=== PATIENT | female | born 1990 | race Hispanic/Latino ===

== ENCOUNTER 2018-09-20 23:12 | Emergency (ER) | payer OTHER, SELFPAY ==
--- OUTSIDE RECORDS SUMMARY | 2018-09-20 23:13 | XMS REPORT ---
:1990 [facility] Address [address] [place] [address] Care Team Providers Name Role Phone UNKNOWN, REFFERING Primary Care Provider Unavailable BRITANY WEBER Unavailable Unavailable Problems This patient has no known problems. Allergies, Adverse Reactions, Alerts This patient has no known allergies or adverse reactions. Medications This patient has no known medications. Encounters Start End Encounter Admission Attending Care Care Encounter Date/Time Date/Time Type Type Clinicians Facility Department ID 2018-06-11 2018-06-11 Outpatient [facility] [id number] 00:00:00 00:00:00 2018-04-28 2018-04-28 Outpatient [facility] [id number] 00:00:00 00:00:00 2018-04-24 2018-04-24 [facility] [id number] 16:46:38 16:46:38 2018-04-24 2018-04-24 Outpatient [facility] [id number] 15:51:48 15:51:48 2018-04-11 2018-04-11 [facility] [id number] 13:55:38 13:55:38 2018-04-11 2018-04-11 [facility] [id number] 00:00:00 00:00:00 2017-06-10 2017-06-10 Outpatient [facility] [id number] 08:49:20 08:49:20 2017-04-11 2017-04-11 [facility] [id number] 00:00:00 00:00:00 Results Test Description Test Time Test Comments Text Results Atomic Results Result Comments Basic Metabolic Panel 2017-02-11 13:11:00 Test Item Value Reference Range Comments Sodium (test code=NA) 139 mmol/L 135-145 Potassium (test code=K) 3.7 mmol/L 3.5-5.1 Chloride (test code=CL) 104 mmol/L 98-105 Carbon Dioxide (test 26 mmol/L 22-29 code=CO2) Glucose (test code=GLU) 78 mg/dL 70-115 Blood Urea Nitrogen (test 7 mg/dL 6-20 code=BUN) Creatinine (test code=CREAT) 0.4 mg/dL 0.5-0.9 Calcium (test code=CA) 8.8 mg/dL 8.3-10.5 BUN/Creatinine Ratio (test 17.5 code=BCRATIO) Anion Gap (test code=AGAP) 9 mmol/L 7-16 Estimated GFR (test >60 mL/min/1.73m2 eGFR (estimated Glomerular code=GFR) Filtration Rate) is an estimated value,calculated from the patient's serum creatinine using the MDRD equation.It is NOT the patient's actual GFR. The eGFR provides a more clinicallyuseful measure of kidney disease than serum creatinine alone.This calculation takes sex and race into account, if the informationis provided. If the race is not provided, and the patient isAfrican-Colombian, multiply by 1.212. If sex is not provided, and thepatient is female, multiply by 0.742. Results for patients <18 years ofage have not been validated by the MDRD study and should be interpretedwith caution.eGFR Result Interpretation:eGFR > or=60 is in the Normal RangeeGFR < 60 may mean kidney diseaseeGFR < 15 may mean kidney failureRanges recommended by the National Kidney Foundation,http://nkdep.nih.go v [facility], Serum, [id number] 13:00:00 Test Item Value Reference Range Comments Preg Qual [Se] (test code=BSHCG) Negative Negative CBC with [id number] 12:52:00 Test Item Value Reference Range Comments WBC (test code=WBC) 6.8 K/cumm 4.4-10.5 RBC (test code=RBC) 4.82 M/cumm 3.75-5.20 Hemoglobin (test code=HGB) 13.8 gm/dL 12.2-14.8 Hematocrit (test code=HCT) 42.8 % 36.5-44.4 MCV (test code=MCV) 88.9 fL 80-100 MCH (test code=MCH) 28.6 pg 27.0-32.5 MCHC (test code=MCHC) 32.2 g/dL 32.0-37.5 RDW (test code=RDW) 13.3 % 11.5-14.5 Platelet Count (test code=PLTCT) 246 K/cumm 140-440 MPV (test code=MPV) 7.9 fL Diff Method (test code=DIFFM) Auto Neutrophil (test code=NEUT) 66.2 % 36-70 Lymphocyte (test code=LYMPH) 23.9 % 12-44 Monocyte (test code=MONO) 6.3 % 0-11 Eosinophil (test code=EOS) 3.4 % 0-7 Basophil (test code=BASO) 0.1 % 0-2 Neutro Abs (test code=ANEUT) 4.5 K/cumm 1.6-7.4 Lymph Abs (test code=ALYMPH) 1.6 K/cumm 0.5-4.6 Benzie Abs (test code=AMONO) 0.4 K/cumm 0.0-1.2 Eos Abs (test code=AEOS) 0.23 K/cumm 0.00-0.74 Baso Abs (test code=ABASO) 0.0 K/cumm 0.00-0.21
[2018-09-20] MEDS ORDERED: IPRATROPIUM BROM 0.5MG/2.5ML ONE (23:53)
[2018-09-20] MEDS ORDERED: ALBUTEROL 2.5 MG/3 ML NEB SOL ONE (23:53)
--- NOTE | 2018-09-21 01:03 | ER ---
Nurse's Notes [facility] Name: Carolina Goldberg Age: 28 yrs Sex: Female : 1990 Arrival Date: 09/20/2018 Time: 23:14 Bed 28 Private MD: Diagnosis: Unspecified asthma with (acute) exacerbation;Acute upper respiratory infection, unspecified Presentation: 09/20 23:24 Presenting complaint: Patient states: i have been coughing , short of breath and have mg2 chills x 3 days. i used my breathing treatment but to no avail. Transition of care: patient was not received from another setting of care. Onset of symptoms was September 18, 2018. Risk Assessment: Do you want to hurt yourself or someone else? Patient reports no desire to harm self or others. Initial Sepsis Screen: Does the patient meet any 2 criteria? No. Patient's initial sepsis screen is negative. Does the patient have a suspected source of infection? No. Patient's initial sepsis screen is negative. Care prior to arrival: None. 23:24 Method Of Arrival: Ambulatory mg2 23:24 Acuity: EWELINA 4 mg2 Triage Assessment: 23:30 General: Appears in no apparent distress. comfortable, Behavior is calm, cooperative. mg2 Pain: Complains of pain in chest Pain does not radiate. Pain currently is 2 out of 10 on a pain scale. Quality of pain is described as aching, Pain began today Is intermittent, Aggravated by coughing. EENT: No signs and/or symptoms were reported regarding the EENT system. Neuro: Level of Consciousness is awake, alert, obeys commands, Oriented to person, place, time, situation. Cardiovascular: Capillary refill < 3 seconds Patient's skin is warm and dry. Respiratory: Breath sounds with wheezes in right posterior middle lobe and right posterior lower lobe. Respiratory: Reports shortness of breath at rest since 3 days ago cough that is productive. GI: No signs and/or symptoms were reported involving the gastrointestinal system. : No signs and/or symptoms were reported regarding the genitourinary system. Derm: Skin is intact, is healthy with good turgor, Skin is pink, warm \T\ dry. normal. Musculoskeletal: Circulation, motion, and sensation intact. Capillary refill < 3 seconds. 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 - Social history:: Smoking status: Patient/guardian denies using tobacco, Patient/guardian denies using alcohol, street drugs, IV drugs. - Ebola Screening: : No symptoms or risks identified at this time. Screenin:29 Abuse screen: Denies threats or abuse. Denies injuries from another. Nutritional mg2 screening: No deficits noted. Tuberculosis screening: No symptoms or risk factors identified. Fall Risk None identified. Assessment: 23:33 Reassessment: see triage assessment. mg2 09/21 01:16 Reassessment: Patient states feeling better. mg2 Vital Signs: 09/20 23:27 BP 132 / 88; Pulse 115; Resp 18; Temp 98(O); Pulse Ox 94% on R/A; Weight 104.33 kg; mg2 Height 5 ft. 4 in. (162.56 cm); Pain 2/10; 09/21 01:15 BP 128 / 85; Pulse 113; Resp 18; Pulse Ox 98% on R/A; Pain 0/10; mg2 09/20 23:27 Body Mass Index 39.48 (104.33 kg, 162.56 cm) mg2 ED Course: 09/20 23:14 Patient arrived in ED. ag3 23:17 Salomon Haley, NANDO is Primary Nurse. mg2 23:18 Jonn Alejandro PA is PHCP. cp 23:18 Jonn Rose MD is Attending Physician. cp 23:26 Triage completed. mg2 23:29 Arm band placed on. mg2 23:30 No provider procedures requiring assistance completed. Patient did not have IV access mg2 during this emergency room visit. 23:34 Patient has correct armband on for positive identification. mg2 23:58 Patient moved to radiology via wheelchair. sg4 23:58 X-ray completed. Patient tolerated procedure well. sg4 23:59 XRAY Chest Pa And Lat (2 Views) In Process Unspecified. EDMS 09/21 00:05 Patient moved back from radiology. sg4 Administered Medications: 09/20 23:45 Drug: Albuterol - atroVENT (3:1) (2.5 mg - 0.5 mg) 3 ml Route: Nebulizer; mg2 09/21 00:46 Follow up: Response: No adverse reaction; Marked relief of symptoms mg2 01:01 Drug: predniSONE 40 mg Route: PO; mg2 01:01 Follow up: Response: No adverse reaction; Medication administered at discharge. mg2 Outcome: 01:02 Discharge ordered by . jg 01:16 Discharged to home ambulatory. mg2 01:16 Condition: stable 01:16 Discharge instructions given to patient, Instructed on discharge instructions, follow up and referral plans. medication usage, Demonstrated understanding of instructions, follow-up care, medications, Prescriptions given X 4. 01:16 Patient left the ED. mg2 Signatures: Dispatcher [employer] EDMS Jonn Alejandro PA PA cp Gardose, Michele, RN RN mg2 Tara Chowdary3 Sugey Barba4
--- NOTE | 2018-09-21 01:03 | EDPHYS ---
Physician Documentation [facility] Name: Carolina Goldberg Age: 28 yrs Sex: Female : 1990 Arrival Date: 09/20/2018 Time: 23:14 Bed 28 Private MD: ED Physician Jonn Rose HPI: 09/20 23:35 This 28 yrs old Female presents to ER via Ambulatory with complaints of Cough. cp 23:35 The patient or guardian reports cough, that is intermittent, with no sputum. cp 23:35 Onset: The symptoms/episode began/occurred 3 day(s) ago. Severity of symptoms: in the emergency department the symptoms are unchanged, despite home interventions. Associated signs and symptoms: Pertinent positives: chest pain, with cough, fever, sore throat, Pertinent negatives: diarrhea, vomiting. 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 - Social history:: Smoking status: Patient/guardian denies using tobacco, Patient/guardian denies using alcohol, street drugs, IV drugs. - Ebola Screening: : No symptoms or risks identified at this time. ROS: 23:45 Constitutional: Positive for chills, poor PO intake, Negative for body aches. cp 23:45 Eyes: Negative for injury, pain, redness, and discharge. cp 23:45 ENT: Positive for sore throat, Negative for drainage from ear(s), ear pain, difficulty swallowing, difficulty handling secretions. 23:45 Cardiovascular: Positive for chest pain, with cough, Negative for edema, palpitations. 23:45 Respiratory: Positive for cough, with no reported sputum. 23:45 Abdomen/GI: Negative for abdominal pain, vomiting, diarrhea, constipation. 23:45 Skin: Negative for cellulitis, rash. 23:45 Neuro: Negative for altered mental status, headache, weakness. 23:45 All other systems are negative. Exam: 23:50 Constitutional: The patient appears in no acute distress, alert, awake, cp non-diaphoretic, non-toxic, well developed, well nourished, obese. 23:50 Head/Face: Normocephalic, atraumatic. Eyes: Pupils equal round and reactive to light, cp extra-ocular motions intact. Lids and lashes normal. Conjunctiva and sclera are non-icteric and not injected. Cornea within normal limits. Periorbital areas with no swelling, redness, or edema. ENT: Nares patent. No nasal discharge, no septal abnormalities noted. Tympanic membranes are normal and external auditory canals are clear. Oropharynx with no redness, swelling, or masses, exudates, or evidence of obstruction, uvula midline. Mucous membranes moist. Chest/axilla: Normal chest wall appearance and motion. Nontender with no deformity. No lesions are appreciated. 23:50 Cardiovascular: Rate: tachycardic, Rhythm: regular, Edema: is not appreciated, JVD: is not appreciated. 23:50 Respiratory: the patient does not display signs of respiratory distress, Respirations: labored breathing, is not present, intercostal retractions, are absent, tachypnea, is not appreciated, Breath sounds: decreased breath sounds, that are mild, are located in both bases, stridor, is not appreciated, wheezing: that is mild, is heard in the left posterior lower lobe. 23:50 Abdomen/GI: Exam negative for discomfort, distension, guarding, Inspection: abdomen appears normal. 23:50 Back: pain, is absent, ROM is normal. 23:50 Skin: cellulitis, is not appreciated, no rash present. 23:50 Neuro: Orientation: to person, place \T\ time. Mentation: is normal, Cerebellar function: is grossly normal, Motor: moves all fours, strength is normal, Sensation: is normal. Vital Signs: 23:27 BP 132 / 88; Pulse 115; Resp 18; Temp 98(O); Pulse Ox 94% on R/A; Weight 104.33 kg; mg2 Height 5 ft. 4 in. (162.56 cm); Pain 2/10; 09/21 01:15 BP 128 / 85; Pulse 113; Resp 18; Pulse Ox 98% on R/A; Pain 0/10; mg2 09/20 23:27 Body Mass Index 39.48 (104.33 kg, 162.56 cm) mg2 MDM: 09/20 23:18 Patient medically screened. cp 09/21 00:00 Differential Diagnosis: Bronchitis Influenza Upper Respiratory Infection Asthma cp Exacerbation Viral Syndrome Pneumonia. 01:01 Data reviewed: vital signs, nurses notes, lab test result(s), radiologic studies, plain cp films. 01:01 Test interpretation: by ED physician or midlevel provider: plain radiologic studies. cp Counseling: I had a detailed discussion with the patient and/or guardian regarding: the historical points, exam findings, and any diagnostic results supporting the discharge/admit diagnosis, lab results, radiology results, the need for outpatient follow up, a family practitioner, to return to the emergency department if symptoms worsen or persist or if there are any questions or concerns that arise at home. Response to treatment: the patient's symptoms have mildly improved after treatment, and as a result, I will discharge patient. 09/20 23:32 Order name: Influenza Screen (a \T\ B); Complete Time: 00:32 cp 09/21 00:32 Interpretation: Reviewed. 09/20 23:32 Order name: Strep; Complete Time: 00:32 cp 09/21 00:32 Interpretation: Reviewed. 09/20 23:46 Order name: XRAY Chest Pa And Lat (2 Views) 09/21 00:32 Order name: Throat Culture [facility] 09/21 01:05 Order name: Urine Dipstick--Ancillary (enter results) [facility] 09/21 01:05 Order name: Urine --Ancillary (enter results) [facility] 09/20 23:32 Order name: Urine Dipstick-Ancillary (obtain specimen); Complete Time: 01:01 cp 09/20 23:32 Order name: Urine Test (obtain specimen); Complete Time: 01:01 cp Administered Medications: 09/20 23:45 Drug: Albuterol - atroVENT (3:1) (2.5 mg - 0.5 mg) 3 ml Route: Nebulizer; mg2 09/21 00:46 Follow up: Response: No adverse reaction; Marked relief of symptoms mg2 01:01 Drug: predniSONE 40 mg Route: PO; mg2 01:01 Follow up: Response: No adverse reaction; Medication administered at discharge. mg2 Disposition: 09/21/18 01:02 Discharged to Home. Impression: Unspecified asthma with (acute) exacerbation, Acute upper respiratory infection, unspecified. - Condition is Stable. - Discharge Instructions: Asthma, Adult, Upper Respiratory Infection, Adult, Cool Mist Vaporizer. - Prescriptions for Tessalon Perles 100 mg Oral Capsule - take 2 capsule by ORAL route every 8 hours As needed; 30 capsule. Albuterol Sulfate 2.5 mg /3 mL (0.083 %) Inhalation Solution for Nebulization - inhale 1 unit by NEBULIZATION route every 8 hours As needed; 1 box. Prednisone 20 mg Oral Tablet - take 2 tablet by ORAL route once daily for 5 days; 10 tablet. Albuterol Sulfate 90 mcg/actuation - inhale 1-2 puff by INHALATION route every 4-6 hours; 1 Inhaler. - Medication Reconciliation Form, Thank You Letter, Antibiotic Education, Prescription Opioid Use form. - Follow up: Private Physician; When: 2 - 3 days; Reason: Recheck today's complaints. - Problem is new. - Symptoms have improved. Addendum: 09/24/2018 11:21 Co-signature as Attending Physician, Jonn Rose MD I agree with the assessment and c guerin plan of care. Signatures: Dispatcher [employer] EDAK Jonn Rose MD MD cha Page, Corey PA PA cp Salomon Haley, RN RN mg2 Corrections: (The following items were deleted from the chart) 09/21 01:16 01:02 09/21/2018 01:02 Discharged to Home. Impression: Unspecified asthma with (acute) mg2 exacerbation; Acute upper respiratory infection, unspecified. Condition is Stable. Forms are Medication Reconciliation Form, Thank You Letter, Antibiotic Education, Prescription Opioid Use. Follow up: Private Physician; When: 2 - 3 days; Reason: Recheck today's complaints. Problem is new. Symptoms have improved. cp
[2018-09-21] MEDS ORDERED: predniSONE 20 MG TAB ONE (01:10)
[2018-09-21 06:04] LABS: Urine Blood 1+ (NEG); Urine Glucose NEGATIVE (NEG); Urine Protein 1+ (NEG); Urine Specific Gravity 1.025 (1.005-1.030)
--- NOTE | 2018-09-21 09:00 | RAD REPORT ---
EXAM DESCRIPTION: RAD - Chest Pa And Lat (2 Views) - 09/21/2018 12:01 am CLINICAL HISTORY: Cough, shortness of breath COMPARISON: None. TECHNIQUE: PA and lateral views of the chest were obtained. FINDINGS: The lungs are clear of mass or consolidation. No failure or volume overload. Minimal promi nence of the medial left base lung markings. Heart size is normal and central vasculature is within normal limits. No pleural effusion or pneumothorax seen. No acute bony finding noted. No aortic a bnormality. IMPRESSION: Minimal prominence medial left lung base markings. No prior imaging. Minimal left base infiltrate is possible.
== END 2018-09-21 01:16 | disposition home or self-care (01) ==
LOC: ER 23:12
DX: J45.901 Unspecified asthma with (acute) exacerbation (principal); J06.9 Acute upper respiratory infection, unspecified; E03.9 Hypothyroidism, unspecified
CPT/HCPCS: 71046; 81003; 81025; 87070; 87081; 87804; 94640; 99284; J7512

== ENCOUNTER 2021-06-05 09:24 | Emergency (ER) | payer SELFPAY ==
--- OUTSIDE RECORDS SUMMARY | 2021-06-05 09:27 | XMS REPORT | Continuity of Care Document ---
:1990 Author Organization [facility] t Address [address] [place] [address] Care Team Providers Name Role Phone UNKNOWN, REFFERING Primary Care Physician Unavailable BRITANY WEBER Attending Clinician Unavailable Eleni WEBER Admitting Clinician Unavailable Problems This patient has no known problems. Allergies, Adverse Reactions, Alerts This patient has no known allergies or adverse reactions. Medications This patient has no known medications. Procedures This patient has no known procedures. Encounters Start End Encounter Admission Attending Care Care Encounter Source Date/Time Date/Time Type Type Clinicians Facility Department ID 2018-06-11 2018-06-11 Outpatient [facility] [id number] 00:00:00 00:00:00 2018-04-28 2018-04-28 Outpatient [facility] [id number] 00:00:00 00:00:00 2018-04-24 2018-04-24 Outpatient [facility] [id number] 16:46:38 16:46:38 2018-04-24 2018-04-24 Outpatient [facility] [id number] [facility] 15:51:48 15:51:48 2018-04-11 2018-04-11 Outpatient [facility] [id number] 13:55:38 13:55:38 2018-04-11 2018-04-11 Outpatient [facility] [id number] 00:00:00 00:00:00 2017-06-10 2017-06-10 Outpatient [facility] [id number] [facility] 08:49:20 08:49:20 2017-04-11 2017-04-11 Outpatient [facility] [id number] [facility] 00:00:00 00:00:00 Results Test Description Test Time Test Comments Results Result [facility] e Comments BREAST ULTRASOUND 2018-10-29 - BREAST ULTRASOUND LEFT 11:22:04 LEFTULTRASOUND OF LEFT BREAST AND LEFT AXILLA: 10/29/2018CLINICAL: Pain left breast. No prior exams were available for comparison. Real-time ultrasound of the left breast and axilla was performed. No abnormalities were seen sonographically in the left breast or the left axilla. IMPRESSION: BENIGN There is no sonographic evidence of malignancy. Follow-up with ACR guidelines. Axel Marrero M.D. rb/:10/29/2018 11:22:04 Apartment Maintenance Worker: Radha CASTRO, [facility]-FWletter sent: BIRADS 1-2 Combo FU Letter Ultrasound BI-RADS: 2 Benign DIAG MAMM 2018-10-29 - DIAG MAMM BILATERAL BILATERAL MALVIN CAD 11:20:19 MALVIN CAD DIGITAL DIGITALBILATERAL FIRST EVER DIGITAL DIAGNOSTIC MAMMOGRAM 3D/2D WITH CAD: 10/29/2018CLINICAL: Focal pain, left breast. Digital breast tomosynthesis was performed in addition to routine CC and MLO views. Current mammographic images were evaluated by either a [employer] M-Vu or a [employer] ImageChecker CAD (computer aided detection system). No prior exams were available for comparison. This is a baseline exam. There are scattered fibroglandular tissues in both breasts. There is a benign calcification in the right breast. There also are benign intramammary nodes in the right breast. Additionally, there are benign calcifications and an intramammary node in the left breast. No suspicious mass, architectural distortion, malignant type calcification, or lymph node abnormality detected. IMPRESSION: INCOMPLETE ASSESSMENT: ADDITIONAL IMAGING EVALUATION RECOMMENDEDThere is no mammographic evidence of malignancy. Left breast ultrasound to follow, reported separately.Axel Marrero M.D. rb/:10/29/2018 11:20:19 Entry: - 10/31/2018 11:16:40Imaging Technologist: Arabella CASTRO, [facility]-FWMammogram BI-RADS: 0 Indeterminate Basic Metabolic Panel 2017-02-11 13:11:00 Test Item Value Reference Range Interpretation Comme nts Sodium (test code = NA) 139 mmol/L 135-145 N Potassium (test code = K) 3.7 mmol/L 3.5-5.1 N Chloride (test code = CL) 104 mmol/L 98-105 N Carbon Dioxide (test code = 26 mmol/L 22-29 N CO2) Glucose (test code = GLU) 78 mg/dL 70-115 N Blood Urea Nitrogen (test 7 mg/dL 6-20 N code = BUN) Creatinine (test code = 0.4 mg/dL 0.5-0.9 L CREAT) Calcium (test code = CA) 8.8 mg/dL 8.3-10.5 N BUN/Creatinine Ratio (test 17.5 code = BCRATIO) Anion Gap (test code = 9 mmol/L 7-16 N AGAP) Estimated GFR (test code = >60 mL/min/1.73m2 eGFR (estimated Glomerular GFR) Filtration Rate ) is an estimated value ,calculated from the patien t's serum creatinine usin g the MDRD equation.It is NOT the patient's actua l GFR. The eGFR provides a more clinicallyusefu l measure of kidney disease than serum creatinine jagjit e.This calculation janay es sex and race into accou nt, if the informationis p rovided. If the race is not provided, and the patient isAfrican-Ameri can, multiply by 1.212. If se x is not provided, and t hepatient is female, multipl y by 0.742. Results for pat ients <18 years ofage hav e not been validated by e MDRD study and should be i nterpretedwith caution.eGFR Re sult Interpretation: eGFR > or = 60 is in the Nancy l RangeeGFR < 60 may mean kid willow diseaseeGFR < 1 5 may mean kidney failure* Ranges recommended by the National Kidney Foundation,http ://nkdep.nih.g ov BHCG, Serum, [id number] 13:00:00 Test Item Value Reference Range Interpretation Comments Preg Qual [Se] (test code = BSHCG) Negative Negative N CBC with [id number] 12:52:00 Test Item Value Reference Range Interpretation Comments WBC (test code = WBC) 6.8 K/cumm 4.4-10.5 N RBC (test code = RBC) 4.82 M/cumm 3.75-5.20 N Hemoglobin (test code = HGB) 13.8 gm/dL 12.2-14.8 N Hematocrit (test code = HCT) 42.8 % 36.5-44.4 N MCV (test code = MCV) 88.9 fL 80-100 N MCH (test code = MCH) 28.6 pg 27.0-32.5 N MCHC (test code = MCHC) 32.2 g/dL 32.0-37.5 N RDW (test code = RDW) 13.3 % 11.5-14.5 N Platelet Count (test code = 246 K/cumm 140-440 N PLTCT) MPV (test code = MPV) 7.9 fL Diff Method (test code = DIFFM) Auto Neutrophil (test code = NEUT) 66.2 % 36-70 N Lymphocyte (test code = LYMPH) 23.9 % 12-44 N Monocyte (test code = MONO) 6.3 % 0-11 N Eosinophil (test code = EOS) 3.4 % 0-7 N Basophil (test code = BASO) 0.1 % 0-2 N Neutro Abs (test code = ANEUT) 4.5 K/cumm 1.6-7.4 N Lymph Abs (test code = ALYMPH) 1.6 K/cumm 0.5-4.6 N [place] Abs (test code = AMONO) 0.4 K/cumm 0.0-1.2 N Eos Abs (test code = AEOS) 0.23 K/cumm 0.00-0.74 N Baso Abs (test code = ABASO) 0.0 K/cumm 0.00-0.21 N
[2021-06-05 10:59] LABS: SARS-COV-2 RT PCR NEGATIVE (NEGATIVE)
--- NOTE | 2021-06-05 11:49 | EDPHYS ---
Physician Documentation [facility] Name: Carolina Goldberg Age: 30 yrs Sex: Female : 1990 Arrival Date: 06/05/2021 Time: 09:28 Bed 17 Private MD: ED Physician Ho Morris HPI: 06/05 09:59 This 30 yrs old Female presents to ER via Ambulatory with complaints of rn Diarrhea. 09:59 The patient presents to the emergency department with diarrhea, that is intermittent. rn Onset: The symptoms/episode began/occurred 5 day(s) ago. Possible causes: unknown. The symptoms are aggravated by nothing. The symptoms are alleviated by nothing. Associated signs and symptoms: Pertinent positives: abdominal pain, Pertinent negatives: anorexia, dysuria, fever, GI bleeding, hematuria, vomiting. Severity of symptoms: At their worst the symptoms were mild in the emergency department the symptoms have improved. The patient has experienced similar episodes in the past. The patient has not recently seen a physician. 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 - Social history:: Smoking status: Patient denies any tobacco usage or history of. - Family history:: not pertinent. - Hospitalizations: : No recent hospitalization is reported. ROS: 09:59 Constitutional: Negative for fever, chills, and weight loss, Eyes: Negative for injury, rn pain, redness, and discharge, Neck: Negative for injury, pain, and swelling, Cardiovascular: Negative for chest pain, palpitations, and edema, Respiratory: Negative for shortness of breath, cough, wheezing, and pleuritic chest pain, Abdomen/GI: + abd cramping and diarrhea Back: Negative for injury and pain, : Negative for injury, bleeding, discharge, and swelling, MS/Extremity: Negative for injury and deformity, Skin: Negative for injury, rash, and discoloration, Neuro: Negative for headache, weakness, numbness, tingling, and seizure. 09:59 All other systems are negative. Exam: 09:59 Constitutional: This is a well developed, well nourished patient who is awake, alert, rn and in no acute distress. Head/Face: Normocephalic, atraumatic. Eyes: Periorbital areas with no swelling, redness, or edema. Cardiovascular: Regular rate and rhythm. No pulse deficits. Respiratory: No increased work of breathing, no retractions or nasal flaring. Abdomen/GI: soft, non-tender, no guarding Skin: Warm, dry MS/ Extremity: Pulses equal, no cyanosis. Neuro: Awake and alert, GCS 15 Vital Signs: 09:36 BP 108 / 68; Pulse 79; Resp 17; Temp 97.7(TE); Pulse Ox 98% on R/A; Weight 92.99 kg tw2 (R); Height 5 ft. 3 in. (160.02 cm); 09:42 BP 106 / 70; Pulse 75; Resp 18; Temp 97.9(O); Pulse Ox 98% ; sl2 11:18 BP 111 / 70; Pulse 67; Resp 16; Temp 98.5; Pulse Ox 99% ; sl2 09:36 Body Mass Index 36.31 (92.99 kg, 160.02 cm) tw2 MDM: 09:40 Patient medically screened. rn 11:47 Differential diagnosis: viral gastroenteritis, gastroenteritis. Data reviewed: vital rn signs, nurses notes, lab test result(s), and as a result, I will discharge patient. Counseling: I had a detailed discussion with the patient and/or guardian regarding: the historical points, exam findings, and any diagnostic results supporting the discharge/admit diagnosis, lab results, the need for outpatient follow up, to return to the emergency department if symptoms worsen or persist or if there are any questions or concerns that arise at home. Special discussion: I discussed with the patient/guardian in detail that at this point there is no indication for admission to the hospital. It is understood, however, that if the symptoms persist or worsen the patient needs to return immediately for re-evaluation. ED course: Pt states feels fine, states only signed in because her daughter was going to be seen, feels better, COVID and flu neg, will dc home as viral syndrome.. 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 EDMT EDMS
--- NOTE | 2021-06-05 11:49 | ER ---
Nurse's Notes [facility] Name: Carolina Goldberg Age: 30 yrs Sex: Female : 1990 Arrival Date: 06/05/2021 Time: 09:28 Bed 17 Private MD: Diagnosis: Diarrhea, unspecified Presentation: 06/05 09:36 Chief complaint: Patient states: i think she rubbed off on me. i have been having tw2 diarrhea and nausea. then it started again this weekend. Coronavirus screen: diarrhea, nausea, Client presents with at least one sign or symptom that may indicate coronavirus-19. Standard/surgical mask placed on the client. Provider contacted for isolation considerations. Ebola Screen: Patient denies travel to an Ebola-affected area in the 21 days before illness onset. Initial Sepsis Screen: Does the patient meet any 2 criteria? Yes Does the patient have a suspected source of infection? No. Patient's initial sepsis screen is negative. Risk Assessment: Do you want to hurt yourself or someone else? Patient reports no desire to harm self or others. Onset of symptoms was June 05, 2021. 09:36 Method Of Arrival: Ambulatory tw2 09:36 Acuity: EWELINA 3 tw2 Triage Assessment: 09:37 General: Appears in no apparent distress. Behavior is calm, cooperative, appropriate tw2 for age. Pain: Complains of pain in right lower quadrant and left lower quadrant. GI: Reports lower abdominal pain, diarrhea, nausea. 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 - Social history:: Smoking status: Patient denies any tobacco usage or history of. - Family history:: not pertinent. - Hospitalizations: : No recent hospitalization is reported. Screenin:44 Abuse screen: Denies threats or abuse. Nutritional screening: No deficits noted. tw2 Tuberculosis screening: No symptoms or risk factors identified. Fall Risk None identified. Assessment: 09:42 General: Appears in no apparent distress. well groomed, well developed. sl2 09:42 Pain: Denies pain. Neuro: No deficits noted. Cardiovascular: No deficits noted. sl2 Respiratory: No deficits noted. GI: Abdomen is round Bowel sounds present X 4 quads. Abd is soft and non tender X 4 quads. Reports diarrhea, nausea, vomiting. : No deficits noted. No signs and/or symptoms were reported regarding the genitourinary system. EENT: No deficits noted. Derm: No deficits noted. No signs and/or symptoms reported regarding the dermatologic system. Musculoskeletal: No deficits noted. No signs and/or symptoms reported regarding the musculoskeletal system. Vital Signs: 09:36 BP 108 / 68; Pulse 79; Resp 17; Temp 97.7(TE); Pulse Ox 98% on R/A; Weight 92.99 kg tw2 (R); Height 5 ft. 3 in. (160.02 cm); 09:42 BP 106 / 70; Pulse 75; Resp 18; Temp 97.9(O); Pulse Ox 98% ; sl2 11:18 BP 111 / 70; Pulse 67; Resp 16; Temp 98.5; Pulse Ox 99% ; sl2 09:36 Body Mass Index 36.31 (92.99 kg, 160.02 cm) tw2 ED Course: 09:28 Patient arrived in ED. mr 09:37 Triage completed. tw2 09:38 Arm band placed on. tw2 09:38 Bed in low position. Call light in reach. tw2 09:40 Ho Morris MD is Attending Physician. rn 09:42 No provider procedures requiring assistance completed. Patient did not have IV access sl2 during this emergency room visit. 09:54 Devora Patterson, NANDO is Primary Nurse. 2 10:18 Flu Sent. 5 10:18 COVID-19/FLU A+B Sent. 5 10:19 COVID swab sent to lab. Flu and/or RSV swab sent to lab. 5 Administered Medications: No medications were administered Outcome: 11:48 Discharge ordered by . rn 12:10 Discharged to home ambulatory. [facility] 12:10 Condition: stable 12:10 Discharge instructions given to patient, Instructed on discharge instructions, follow up and referral plans. Demonstrated understanding of instructions, follow-up care. 12:11 Patient left the ED. [facility] Signatures: Adames, Carie MorrisHo MD MD rn Wise, Tara, RN RN tw2 Carmenza Bose Devora Vela RN RN sl2 Carolina Mccall RN RN [id number]
[2021-06-05 12:18] VITALS: BP 111/70; TEMP 98.5; O2SAT 99
== END 2021-06-05 12:11 | disposition home or self-care (01) ==
LOC: ER 09:24
DX: R19.7 Diarrhea, unspecified (principal); E03.9 Hypothyroidism, unspecified
CPT/HCPCS: 0240U; 99283